=== PATIENT | female | born 1960 | race Caucasian/White ===

== ENCOUNTER 2023-02-06 07:39 | Emergency (ER) | payer SELFPAY ==
[2023-02-06 07:47] VITALS: BP 135/86; PULSE 59; RESP 18; TEMP 36.3; O2SAT 100; BMI 22.8
--- NOTE | 2023-02-06 07:58 | CRLHL7_ITS ---
For Patients: As a result of the Century Cures Act, medical imaging exams and procedure reports are released immediately into your electronic medical record. You may view this report before your referring provider. If you have questions, please contact your health care provider. Indication: Left flank pain Technique: Volumetric multidetector CT images of the abdomen and pelvis were without the administration of intravenous contrast. Comparison: None available. Findings: The lung bases are clear. The liver is normal in attenuation without intrahepatic biliary ductal dilatation. The gallbladder is unremarkable without evidence of radiopaque calculus. There is no significant common biliary ductal dilatation or abrupt cut off. The spleen is normal in attenuation and size. The stomach and duodenum are grossly unremarkable. The pancreas is normal in attenuation without significant atrophy. The adrenal glands are unremarkable. There is left-sided hydronephrosis and hydroureter with demonstration of a 4.1 millimeter calculus in the distal left ureter at the ureterovesicular junction. There is moderate stool seen throughout the colon with fluid-filled central small bowel loops likely representing minimal physiologic changes. The appendix is unremarkable. There is no significant mesenteric, retroperitoneal, or pelvic sidewall lymph nodes. The aorta is nonaneurysmal. There is no significant atherosclerotic disease appreciated. The solid pelvic viscera are grossly unremarkable. There is no free fluid or free air. The anterior abdominal wall is intact without significant hernias. The lumbar vertebral body heights are grossly maintained with mild multi-level degenerative disc disease. There is no significant spondylolisthesis or displaced fracture. Impression: There is left-sided hydronephrosis and hydroureter with demonstration of a 4.1 millimeter calculus in the distal left ureter at the ureterovesicular junction. Please note that all CT scans at this facility use dose modulation, iterative reconstruction, and/or weight-based dosing when appropriate to reduce radiation dose to as low as reasonably achievable. Dictated by Danny Infante MD @ 02/06/2023 8:50:15 AM (Electronically Signed)
--- NOTE | 2023-02-06 07:59 | ED.GENADULT ---
HPI - General Adult General Time Seen by Provider: 08:00 Date Seen: 02/06/23 Chief complaint: Flank Pain Stated complaint: kidney stone Time Seen by Provider: 02/06/23 07:41 Source: patient Mode of arrival: ambulatory Limitations: no limitations History of Present Illness HPI narrative: Patient is a 62 year white female that had a history of kidney stones in the past in the , she woke up couple hours ago with left-sided flank pain radiating a little bit to her anterior abdomen, no position of comfort. It has been significant pain. She had no dysuria, hematuria or frequency, no chest pain breathing problem. The patient is generally healthy, she works with caregiving for others. She had an allergy to an antibiotic but denies any other allergies. Has had no bleeding problems in the past. No ulcer history or kidney issues. Related Data Previous Rx's Medication Instructions Recorded ketorolac 10 mg tablet 10 mg PO Q6H PRN pain 3 days #10 02/06/23 tabs Allergies Allergy/AdvReac Type Severity Reaction Status Date / Time No Known Drug Allergies Allergy Verified 02/06/23 07:47 Review of Systems Status of ROS: Reports: 6 or more systems reviewed and unremarkable except as noted in History and below PFSH PFSH Social History Smoking Status: Never smoker Do you use any of these nicotine containing products: None Second hand tobacco smoke exposure: No How often do you have a drink containing alcohol: monthly or less How often do you have six or more drinks on one occasion: Never AUDIT-C Alcohol total score: 1 Non-prescribed substance use: denies use service: No Exam Narrative: Exam Narrative: Objective: Vital signs unremarkable In general patient is in mild distress and discomfort alert orient x3 noncyanotic HEENT is unremarkable neck is supple Pulse regular Abdomen soft benign nontender no masses no peritonitis negative CVA tenderness Extremities are no edema Neurologic nonfocal Good peripheral perfusion noted skin warm and dry Const: Vital Signs, click to edit/add: Vital Signs - 24 hr 02/06/23 08:25 Pulse Rate [Right Pulse Oximeter] 64 Respiratory Rate 16 Blood Pressure [Ri ght Upper Arm] 125/69 Pulse Oximetry 100 Oxygen Delivery Me thod Room Air Course Vital Signs Vital signs: Initial Vital Signs Temperature 97.3 F L 02/06/23 07:47 Temperature Source Temporal Artery Scan 02/06/23 07:47 Pulse Rate 59 L 02/06/23 07:47 Respiratory Rate 18 02/06/23 07:47 Blood Pressure 135/86 02/06/23 07:47 Blood Pressure Mean 102 02/06/23 07:47 Blood Pressure Position Sitting 02/06/23 07:47 Pulse Oximetry 100 02/06/23 07:47 Oxygen Delivery Method 02/06/23 07:47 Vital Signs Temperature 97.3 F L 02/06/23 07:47 Pulse Rate 59 L 02/06/23 07:47 Respiratory Rate 18 02/06/23 07:47 Blood Pressure 135/86 02/06/23 07:47 Pulse Oximetry 100 02/06/23 07:47 Oxygen Delivery Method 02/06/23 07:47 Temperature 97.3 F L 02/06/23 07:47 Pulse Rate 64 02/06/23 08:25 Respiratory Rate 16 02/06/23 08:25 Blood Pressure 125/69 02/06/23 08:25 Pulse Oximetry 100 02/06/23 08:25 Oxygen Delivery Method 02/06/23 08:25 Medical Decision Making MDM Narrative Medical decision making narrative: Patient is a 62 year white female with a history of kidney stones who presents with left flank pain radiating to her anterior abdomen, no position of comfort, no palpable abdominal pain, likely renal the lithiasis. Patient will get a CT scan of the abdomen unenhanced, urinalysis, IV fluid, IV morphine IV Toradol. Patient get 1 L normal saline. The patient had urinalysis, lab studies, disposition pending CT scan and other findings. Differential would include intra-abdominal infection, colitis, diverticulitis, urolithiasis. Addendum: The patient has a left-sided kidney stone at the vesicoureteral junction, it is 4.1 mm. Should past. The patient's pain is completely resolved. She would like to try and go home. Will send her home with Toradol and a urine strainer. She can follow up with regular doctor as needed bring the stone to her clinic, she can return if she has increasing pain or problem. She was comfortable plan. Lab Data Labs: Lab Results 02/06/23 02/06/23 02/06/23 Range/Units 08:00 08:00 08:42 WBC 7.34 (4.50-11.00) K/uL RBC 4.79 (4.00-5.20) m/uL Hgb 14.1 (12.0-16.0) gm/dL Hct 42.7 (33.0-51.0) % MCV 89 (80-100) fL MCH 29 (26-34) pg MCHC 33 (32-36) gm/dL RDW Coeff of Alice 12.1 (11.5-15.5) % Plt Count 301 (140-440) K/uL Neut % (Auto) 63.5 (42.0-72.0) % Lymph % (Auto) 29.0 (20-44) % [place] % (Auto) 5.4 (0.0-11.0) % Eos % (Auto) 1.2 (0.0-7.0) % Baso % (Auto) 0.8 (0.0-3.0) % Neut # (Auto) 4.65 (1.7-7.0) K/uL Lymph # (Auto) 2.13 (0.90-2.90) K/uL [place] # (Auto) 0.40 (0.00-0.90) K/UL Eos # (Auto) 0.09 (0.00-0.50) K/uL Baso # (Auto) 0.06 (0.00-0.30) K/uL Sodium 137 (135-149) mmol/L Potassium 3.4 L (3.6-5.1) mmol/L Chloride 106 (96-114) mmol/L Carbon Dioxide 24 (20-32) mmol/L BUN 12 (7-30) mg/dL Creatinine 0.8 (0.5-1.5) mg/dL Estimated Creat Clear 41.90 Estimated GFR 83 ml/min Glucose 130 H (60-115) mg/dL Calcium 9.3 (8.4-10.6) mg/dL Total Bilirubin 1.8 H (0.1-1.5) mg/dL Direct Bilirubin 0.0 (0.0-0.5) mg/dL AST 23 (12-35) U/L ALT 20 (4-35) U/L Alkaline Phosphatase 79 (40-150) U/L C-Reactive Protein < 0.5 L (0.5-1.0) mg/dL Total Protein 7.4 (6.0-8.3) g/dL Albumin 4.7 (3.3-5.0) g/dL Amylase 85 (18-89) U/L Urine Color Yellow (Yellow) Urine Appearance Clear (Clear) Urine pH 6.5 (5.0-8.5) Ur Specific Gervais 1.025 (1.000-1.030) Urine Protein Negative (Negative) Urine Glucose (UA) Negative (Negative) Urine Ketones 2+ A (Negative) Urine Blood Trace-intact A (Negative) Urine Nitrite Negative (Negative) Urine Bilirubin Negative (Negative) Urine Urobilinogen 0.2 (0.2-1.0) Ur Leukocyte Esterase Negative (Negative) Urine RBC 0-2 (0-2) Urine WBC 0-2 (0-5) Ur Squamous Epith Cells None (None-Few) Urine Bacteria Few A (None) Discharge Plan Discharge Clinical Impression: Acute left flank pain Patient Disposition: Home w/ Parent or Adult Condition: Improved Additional Instructions: Light activity, strain urine for 48 hours, Toradol as needed for pain, light activity. Push fluids. Return as needed. Activity Level: Light activity Discharge Diet: Regular Prescriptions: New ketorolac 10 mg tablet 10 mg PO Q6H PRN (Reason: pain) 3 Days Qty: 10 0RF Stand Alone Forms: [facility] Info Instructions
[2023-02-06] MEDS: 0.9 % SODIUM CHLORIDE 1000 ml 1,000 ML 6000 ML IV (08:05)
[2023-02-06] MEDS: KETOROLAC 30 MG/ML inj IVP (08:05)
[2023-02-06] MEDS: MORPHINE 4 MG/ML INJ IVP (08:06)
[2023-02-06 08:16] LABS: Basophils Absolute Auto 0.06 K/uL (0.00-0.30); Basophils Percent Auto 0.8 % (0.0-3.0); Eosinophils Absolute Auto 0.09 K/uL (0.00-0.50); Eosinophils Percent Auto 1.2 % (0.0-7.0); Hematocrit 42.7 % (33.0-51.0); Hemoglobin* 14.1 gm/dL (12.0-16.0); Immature Granulocytes Abs Auto 0.01 K/uL (0.00-0.30); Immature Granulocytes Pct Auto 0.1 %; Lymphocytes Absolute Auto 2.13 K/uL (0.90-2.90); Mean Corpuscular HGB Conc 33 gm/dL (32-36); Mean Corpuscular Hemoglobin 29 pg (26-34); Mean Corpuscular Volume 89 fL (80-100); Monocytes Percent Auto 5.4 % (0.0-11.0); Neutrophils Absolute Auto 4.65 K/uL (1.7-7.0); Neutrophils Percent Auto 63.5 % (42.0-72.0); Platelet Count* 301 K/uL (140-440); RDW Coefficient of Variation % 12.1 % (11.5-15.5); Red Blood Count 4.79 m/uL (4.00-5.20); White Blood Count* 7.34 K/uL (4.50-11.00)
[2023-02-06 08:19] LABS: Slide Review Reflex No
[2023-02-06 08:25] VITALS: BP 125/69; PULSE 64; RESP 16; O2SAT 100
[2023-02-06 08:44] LABS: Chloride* 106 mmol/L (96-114)
[2023-02-06 08:45] LABS: Albumin* 4.7 g/dL (3.3-5.0); Potassium* 3.4 mmol/L (3.6-5.1); Sodium* 137 mmol/L (135-149)
[2023-02-06 08:47] LABS: Amylase* 85 U/L (18-89)
[2023-02-06 08:48] LABS: Appearance Urine Clear (Clear); Bilirubin Urine Negative (Negative); Blood Urine Trace-intact (Negative); Color Urine Yellow (Yellow); Glucose Urine Negative (Negative); Ketones Urine 2+ (Negative); Leukocyte Esterase Urine Negative (Negative); Nitrite Urine Negative (Negative); Protein Urine Negative (Negative); Specific Gravity Urine 1.025 (1.000-1.030); Urobilinogen Urine 0.2 (0.2-1.0); pH Urine 6.5 (5.0-8.5)
[2023-02-06 08:48] LABS: Alkaline Phosphatase* 79 U/L (40-150); Aspartate Amino Transferase* 23 U/L (12-35); Bilirubin Total* 1.8 mg/dL (0.1-1.5); Blood Urea Nitrogen* 12 mg/dL (7-30); Calcium* 9.3 mg/dL (8.4-10.6); Carbon Dioxide* 24 mmol/L (20-32); Creatinine* 0.8 mg/dL (0.5-1.5); Estimated Glomerular Filt Rate 83 ml/min; Glucose* 130 mg/dL (60-115); Total Protein* 7.4 g/dL (6.0-8.3)
[2023-02-06 08:49] LABS: Alanine Aminotransferase* 20 U/L (4-35)
[2023-02-06 08:52] LABS: C Reactive Protein* < 0.5 mg/dL (0.5-1.0)
[2023-02-06 09:02] LABS: Bacteria Urine Few; RBC Urine 0-2 (0-2); WBC Urine 0-2 (0-5)
== END 2023-02-06 09:21 | disposition home or self-care (01) ==
PROVIDERS: Emergency Provider Family Medicine
DX: N20.0 Calculus of kidney (principal); R10.9 Unspecified abdominal pain
CPT/HCPCS: 36415; 74176; 80048; 80076; 81001; 82150; 85025; 86140; 87086; 96374; 96375; 99284; J1885; J2270; J7030